=== PATIENT | female | born 1995 | race Hispanic/Latino ===

== ENCOUNTER 2025-05-19 22:54 | Emergency (ER) | payer OTHER, SELFPAY ==
[2025-05-20 00:18] LABS: Bacteria/HPF None Seen HPF (None Seen); CAUTI Indications for Culture Pelvic or flank pain; Glucose, Urine (Dipstick) Normal (Negative); Leukocyte 250 Leu/uL (Negative); Protein, Urine (Dipstick) Negative (Neg-Trace); RBC/HPF 0-3 HPF (0-3); Specific Gravity, Urine 1.020 (1.002-1.036)
[2025-05-20 00:23] LABS: Urine Culture Reflex No No
== END 2025-05-20 01:20 | disposition left against medical advice (07) ==
LOC: ERS 22:54
DX: Z53.21 Procedure and treatment not carried out due to patient leaving prior to being seen by health care provider (principal)
CPT/HCPCS: 81001